=== PATIENT | male | born 1990 | race American Indian/Alaskan Native ===

== ENCOUNTER 2018-07-26 03:32 | Emergency (ER) | payer OTHER ==
[2018-07-26] MEDS ORDERED: MOTRIN ONE (06:19)
[2018-07-26] MEDS ORDERED: MOTRIN PO ONE (06:20)
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
[2018-07-26] MEDS ORDERED: ULTRAM PO ONE (09:27)
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
[2018-07-26 09:39] VITALS: BP 150/99
== END 2018-07-26 10:04 | disposition home or self-care (01) ==
LOC: ED 03:32
DX: S39.012A Strain of muscle, fascia and tendon of lower back, initial encounter (principal); R03.0 Elevated blood-pressure reading, without diagnosis of hypertension; F17.200 Nicotine dependence, unspecified, uncomplicated; V49.9XXA Car occupant (driver) (passenger) injured in unspecified traffic accident, initial encounter; Y93.89 Activity, other specified; Y99.8 Other external cause status; Y92.410 Unspecified street and highway as the place of occurrence of the external cause
CPT/HCPCS: 72072; 72100; 99283

== ENCOUNTER 2022-05-08 23:09 | Emergency (ER) | payer SELFPAY ==
[2022-05-08] MEDS ORDERED: SODIUM CHLORIDE 0.9% 1000 ML 1,000 ML ONE (23:23)
[2022-05-08] MEDS ORDERED: fentaNYL 100 MCG/2 ML INJ ONE (23:23)
[2022-05-08] MEDS ORDERED: ONDANSETRON 4 MG/2 ML INJ IV ONE (23:31)
[2022-05-08] MEDS ORDERED: SODIUM CHLORIDE 0.9% 1000 ML 1,000 ML IV ONE (23:31)
[2022-05-08] MEDS ORDERED: fentaNYL 100 MCG/2 ML INJ IV ONE (23:31)
[2022-05-08] MEDS ORDERED: TETRACAINE 0.5% OPHTH SOLN 4ML OU PRN (23:32)
[2022-05-08] MEDS ORDERED: TETANUS,DIPH,PERTUSS(ACELL) VACCINE 0.5 ML SYRINGE IM ONE (23:32)
[2022-05-09] MEDS ORDERED: fentaNYL 100 MCG/2 ML INJ IV ONE (00:24)
[2022-05-09 00:29] LABS: Basophils % (Auto) 0.4 % (0.0-1.8); Eosinophils # (Auto) 0.1 K/mm3 (0.0-0.4); Eosinophils % (Auto) 1.1 % (0.0-4.3); Hematocrit 42.1 % (35.5-45.6); Hemoglobin 13.6 gm/dl (11.8-15.2); Lymphocytes # (Auto) 3.2 K/mm3 (1.2-5.4); Mean Corpuscular HGB Conc 32 % (32-34); Mean Corpuscular Volume 83 fl (84-94); Monocytes # (Auto) 0.9 K/mm3 (0.0-0.8); Monocytes % (Auto) 7.7 % (0.0-7.3); Platelet Count 251 K/mm3 (140-440); Red Blood Count 5.04 M/mm3 (3.65-5.03); Red Cell Distribution Width 15.4 % (13.2-15.2)
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
[2022-05-09 00:42] LABS: INR 0.93 (0.87-1.13)
[2022-05-09 00:46] LABS: Alanine Aminotransferase 19 units/L (7-56); Albumin 4.6 g/dL (3.9-5); BUN/Creatinine Ratio 12; Blood Urea Nitrogen 14 mg/dL (9-20); Hemolysis Index 6
[2022-05-09 00:57] VITALS: BP 149/99
[2022-05-09 00:58] LABS: Amphetamine Screen,Urine PRESUMPTIVE POSITIVE; Benzodiazepines Screen,Urine PRESUMPTIVE POSITIVE
[2022-05-09 00:59] LABS: Bilirubin,Urine NEG (Negative); Blood,Urine NEG (Negative); Color,Urine Straw (Yellow); Urobilinogen,Urine < 2.0 mg/dL (<2.0)
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
[2022-05-09 01:30] LABS: Cannabinoid Screen,Urine PRESUMPTIVE NEGATIVE; Cocaine Screen,Urine PRESUMPTIVE POSITIVE; Methadone Screen,Urine PRESUMPTIVE NEGATIVE; Opiate Screen,Urine PRESUMPTIVE NEGATIVE
--- NOTE | 2022-05-10 13:40 | Electrocardiograph Report ---
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
== END 2022-05-09 01:40 | disposition hospice, inpatient (51) ==
LOC: ED 23:09
DX: S02.31XA Fracture of orbital floor, right side, initial encounter for closed fracture (principal); S05.20XA Ocular laceration and rupture with prolapse or loss of intraocular tissue, unspecified eye, initial encounter; Z79.899 Other long term (current) drug therapy; V89.2XXA Person injured in unspecified motor-vehicle accident, traffic, initial encounter; Y93.89 Activity, other specified; Y92.89 Other specified places as the place of occurrence of the external cause; Y99.8 Other external cause status
CPT/HCPCS: 36415; 70450; 70486; 72125; 80053; 80307; 81001; 82550; 82962; 83615; 84484; 85025; 85610; 86850; 86900; 86901; 90471; 90715; 93005; 96365; 96375; 96376; 99291; 99292; J0690; J2405; J3010; J7030; 80320; 99285; G0480